=== PATIENT | male | born 1975 | race Caucasian/White ===

== ENCOUNTER 2017-01-28 19:31 | Emergency (ER) | payer BC ==
[2017-01-28 19:45] VITALS: BP 126/92
[2017-01-28] MEDS ORDERED: Diphtheria,Pertussis(Acell),Tetanus Vaccine 0.5 ML SDV IM ONE (20:10)
[2017-01-28] MEDS ORDERED: Lidocaine 1% 20 ML MDV INJECT ONE (20:10)
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
[2017-01-28] MEDS ORDERED: Bacitracin Oint 1 GM U/D Packet TOP ONE (20:45)
== END 2017-01-28 21:46 | disposition home or self-care (01) ==
LOC: JP.ED 19:31
DX: S06.0X0A Concussion without loss of consciousness, initial encounter (principal); S61.214A Laceration without foreign body of right ring finger without damage to nail, initial encounter; S61.210A Laceration without foreign body of right index finger without damage to nail, initial encounter; S51.021A Laceration with foreign body of right elbow, initial encounter; E11.9 Type 2 diabetes mellitus without complications; Z23 Encounter for immunization; Z88.5 Allergy status to narcotic agent; V29.9XXA Motorcycle rider (driver) (passenger) injured in unspecified traffic accident, initial encounter
CPT/HCPCS: 12002; 70450; 90471; 90715; 99284-25

== ENCOUNTER 2018-07-28 21:46 | Emergency (ER) | payer SELFPAY ==
[2018-07-28] MEDS ORDERED: Sodium Chloride 0.9% 1,000 ML IV ONE (21:50)
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
[2018-07-28 22:49] VITALS: BP 144/74
== END 2018-07-28 22:12 ==
LOC: JP.ED 21:46
DX: S41.032A Puncture wound without foreign body of left shoulder, initial encounter (principal); S11.93XA Puncture wound without foreign body of unspecified part of neck, initial encounter; E11.9 Type 2 diabetes mellitus without complications; Z88.5 Allergy status to narcotic agent; W34.00XA Accidental discharge from unspecified firearms or gun, initial encounter
CPT/HCPCS: 36415; 71045; 80048; 85027; 86850; 86900; 86901; 86920; 86922; 99285; J7030